=== PATIENT | male | born 1995 | race Caucasian/White ===

== ENCOUNTER 2018-02-13 19:36 | Emergency (ER) | payer BC ==
[~2018-02-13] VITALS: Ht 185.4 cm; Wt 41.7 kg
[2018-02-13] MEDS ORDERED: IBUP400 PO (21:30)
[2018-02-13] MEDS ORDERED: ALBU90OI INH (21:30)
[2018-02-13 21:55] LABS: Calcium, Ionized (POC) 1.17 mmol/L (1.10-1.46); Chloride (POC) 103 mmol/L (98-108); Creatinine (POC) 0.7 mg/dL (0.8-1.3); Glucose (ISTAT POC) 94 mg/dL (70-99); Hemoglobin (POC) 15.6 g/dL (13.5-17.5); Potassium (POC) 3.4 mmol/L (3.5-5.5); Sodium (POC) 141 mmol/L (135-148); Total CO2 (POC) 28 mmol/L (21-32)
[2018-02-13 22:12] LABS: Source, Urine Voided
[2018-02-13 22:15] LABS: Bilirubin, Urine Neg (Neg); Blood, Urine Neg (Neg); Glucose Qualitative, Urine Neg (Neg); Ketones, Urine Neg (Neg); Leukocyte Esterase, Urine Neg (Neg); Nitrite, Urine Neg (Neg); Protein, Urine Neg (Neg); Urobilinogen, Urine NORM (Normal)
[2018-02-13 22:27] LABS: Appearance, Urine Clear (Clear); Color, Urine Yellow (P-Yellow); U Amphetamine Screen Not Detected; U Barbituate Screen Not Detected; U Benzodiazapine Screen Not Detected; U Buprenorphine Screen Not Detected; U Cannabinoids Screen Not Detected; U Cocaine Screen Not Detected; U Methadone Screen Not Detected; U Methamphetamine Screen Not Detected; U Opiates Screen Not Detected; U Oxycodone Screen Not Detected; U Phencyclidine Screen Not Detected; U Propoxyphene Screen Not Detected
== END 2018-02-13 23:04 | disposition home or self-care (01) ==
LOC: ER 19:36
PROVIDERS: Emergency Medicine
DX: J45.909 Unspecified asthma, uncomplicated (principal); R07.89 Other chest pain; Z88.0 Allergy status to penicillin; Z79.899 Other long term (current) drug therapy
CPT/HCPCS: 71046; 80047; 81003; 85014; 93005; 93010; 99285-25

== ENCOUNTER 2018-04-24 18:27 | Emergency (ER) | payer OTHER, BC ==
[~2018-04-24] VITALS: Ht 185.4 cm; Wt 93.0 kg
[~2018-04-24 18:27] MED LIST: ALBU90OI INH; IBUP400 PO
[2018-04-24] MEDS ORDERED: Norco 5-325 Ta1 EACH PO (21:25)
[2018-04-24] MEDS ORDERED: CEPH500 PO (21:25)
== END 2018-04-24 22:03 | disposition home or self-care (01) ==
LOC: ER 18:27
DX: S68.123A Partial traumatic metacarpophalangeal amputation of left middle finger, initial encounter (principal); W23.0XXA Caught, crushed, jammed, or pinched between moving objects, initial encounter
CPT/HCPCS: 11760; 73140; 90471; 90714; 99283-25

== ENCOUNTER 2020-02-18 19:02 | Emergency (ER) | payer SELFPAY ==
[~2020-02-18] VITALS: Ht 185.4 cm; Wt 95.2 kg
[~2020-02-18 19:02] MED LIST changes: +CEPH500 PO; +Norco 5-325 Ta1 EACH PO
[2020-02-18] MEDS ORDERED: CYCL10 PO (21:48)
== END 2020-02-19 00:40 | disposition home or self-care (01) ==
LOC: ER 19:02
DX: M54.6 Pain in thoracic spine (principal); Z88.0 Allergy status to penicillin; Z88.1 Allergy status to other antibiotic agents; Z88.4 Allergy status to anesthetic agent; V43.52XA Car driver injured in collision with other type car in traffic accident, initial encounter; Y92.410 Unspecified street and highway as the place of occurrence of the external cause
CPT/HCPCS: 99283